=== PATIENT | female | born 1950 | race Hispanic/Latino ===

== ENCOUNTER → 2018-04-11 | Outpatient (CLI) | payer MEDICARE | END | disposition home or self-care (01) | LOC: RAH 12:30 | PROVIDERS: ATTEND Family Medicine | DX: Z12.31 Encounter for screening mammogram for malignant neoplasm of breast (principal) | CPT/HCPCS: 77067 ==

== ENCOUNTER 2018-07-10 16:25 | Emergency (ER) | payer MEDICARE, OTHER ==
[2018-07-10] MEDS ORDERED: ACETAMINOPHEN 325 MG TAB ONE (17:06)
== END 2018-07-10 18:35 | disposition home or self-care (01) ==
LOC: EDH 16:25
DX: S01.01XA Laceration without foreign body of scalp, initial encounter (principal); I10 Essential (primary) hypertension; E11.9 Type 2 diabetes mellitus without complications; E78.5 Hyperlipidemia, unspecified; Z88.8 Allergy status to other drugs, medicaments and biological substances; W18.39XA Other fall on same level, initial encounter; Y93.01 Activity, walking, marching and hiking; Y92.89 Other specified places as the place of occurrence of the external cause; Y99.8 Other external cause status
CPT/HCPCS: 70450; 72125; 93005

== ENCOUNTER → 2018-12-20 | Outpatient (CLI) | payer OTHER | END | disposition home or self-care (01) | LOC: RAH 10:43 | PROVIDERS: ATTEND Surgery | DX: M51.14 Intervertebral disc disorders with radiculopathy, thoracic region (principal); M47.24 Other spondylosis with radiculopathy, thoracic region | CPT/HCPCS: 72146 ==

== ENCOUNTER → 2021-05-17 | Outpatient (CLI) | payer OTHER | END | disposition home or self-care (01) | LOC: RAH 13:09 | PROVIDERS: ATTEND Urology | DX: R31.29 Other microscopic hematuria (principal) | CPT/HCPCS: 76770 ==

== ENCOUNTER → 2022-03-23 | Outpatient (CLI) | payer OTHER | END | disposition home or self-care (01) | LOC: RAH 08:44 | PROVIDERS: ATTEND Urology | DX: N39.0 Urinary tract infection, site not specified (principal) | CPT/HCPCS: 76770 ==

== ENCOUNTER → 2023-08-14 | Outpatient (CLI) | payer OTHER | END | disposition home or self-care (01) | LOC: RAH 11:49 | PROVIDERS: ATTEND Family Medicine | DX: Z12.31 Encounter for screening mammogram for malignant neoplasm of breast (principal) | CPT/HCPCS: 77067 ==

== ENCOUNTER → 2025-01-14 | Outpatient (CLI) | payer OTHER ==
--- NOTE | 2025-01-15 14:01 | HMCIMG ---
EXAMINATION: NONCONTRAST MRI OF THE RIGHT HIP. HISTORY: Suspected trochanteric bursitis. COMPARISON: None provided. TECHNIQUE: Multiplanar, multisequence MR images of the pelvis and right hip are submitted. FINDINGS: There is normal bone marrow signal without evidence of fracture, avascular necrosis, or osteomyelitis. There is no displaced labral tear appreciated. Right sacroiliac and hip joints are preserved. The musculature of the pelvis, including the piriformis muscles, appear within normal limits. The iliopsoas tendon appears intact. The hamstring origin at the ischial tuberosity is normal. There is no iliopsoas or greater trochanteric bursitis. There is moderate proximal thigh and hip anterolateral subcutaneous edema without discrete drainable collection. Visualized aspect of the right sciatic nerve appears within normal limits. Urinary bladder is normal. IMPRESSION: 1. Moderate proximal thigh and hip anterolateral subcutaneous edema without discrete drainable collection. 2. No evidence of trochanteric bursitis. 3. No acute osseous abnormalities. /[place]
== END | disposition home or self-care (01) ==
LOC: RAH 10:24
PROVIDERS: ATTEND Orthopaedic Surgery
DX: M70.61 Trochanteric bursitis, right hip (principal); R60.0 Localized edema
CPT/HCPCS: 73721